=== PATIENT | male | born 1950 | race Two or more races ===

== ENCOUNTER 2018-12-27 14:49 | Outpatient (CLI) | payer OTHER | END 2018-12-27 14:56 | disposition home or self-care (01) | LOC: RAD 14:49 | DX: J44.9 Chronic obstructive pulmonary disease, unspecified (principal) ==

== ENCOUNTER 2018-12-29 14:18 | Outpatient (CLI) | payer OTHER | END 2018-12-29 14:34 | disposition home or self-care (01) | LOC: NUCLEAR 14:18 | DX: I10 Essential (primary) hypertension (principal); J44.9 Chronic obstructive pulmonary disease, unspecified ==